=== PATIENT | male | born 1995 | race Caucasian/White ===

== ENCOUNTER 2016-09-18 13:57 | Emergency (ER) | payer OTHER ==
[~2016-09-18] VITALS: Ht 182.9 cm; Wt 81.6 kg
--- NOTE | 2016-09-18 15:37 | ED GENERAL ADULT ---
History of Present Illness General Chief Complaint: Shoulder Injury Stated Complaint: L SHOULDER PAIN Source: patient, family Exam Limitations: no limitations Vital Signs & Intake/Output Vital Signs & Intake/Output Vital Signs Date Time Temp Pulse Resp B/P Pulse O2 O2 Flow FiO2 Ox Delivery Rate 09/18 2108 99.5 92 16 121/55 99 Room Air 09/18 1930 99.2 85 20 160/75 99 Room Air 09/18 1900 95 09/18 1854 99.2 09/18 1723 103.1 09/18 1723 103.1 104 20 136/63 98 Room Air 09/18 1411 99.3 87 20 122/66 97 Room Air ED Intake and Output 09/19 0000 09/18 1200 Intake Total Output Total Balance Patient 180 lb Weight Allergies Coded Allergies: No Known Allergies (09/18/16) Reconcile Medications Cyclobenzaprine HCl 5 MG TABLET 1 TAB PO TIDPRN Muscle Spasm Triage Note: TRIAGE: PT TO ER WITH MOTHER C/C L SHOULDER PAIN, ONSET YESTERDAY MORNING. WOKE UP WITH IT. ?'S SLEPT ON IT WRONG. NO KNOWN INJURY. TOOK IBUPROFEN 2 DOSES OF IBUPROFEN (TOTAL 1400 MG) SINCE 07:30 WITH NO RELIEF NOTED. Triage Nurses Notes Reviewed? yes HPI: 21 yo previosuly healthy M presenting with left shoulder pain, chills. Patient woke up with left shoulder pain yesterday morning, progressive since that time, worse with movement or palpation. Denies trauma or straining injury. Chills starting last night, tactile fevers, diaphoresis. Worsening pain today prompting presentation to the ED. ROS (+) for nasal congestion, mild cough, intermittent dysuria. Patient sexually active with one partner, sometimes uses protection, denies penile discharge or lesions. Denies rash, neck pain/stiffness, GARNER, CP, SOB, AP, N/V/D/C, neurologic Sx. (LUIS ENRIQUE NICOLAS,DANIEL) Past History Travel History Traveled to [place] past 21 day No Medical History Any Pertinent Medical History? see below for history Neurological: NONE EENT: NONE Cardiovascular: NONE Respiratory: NONE Gastrointestinal: NONE Hepatic: NONE Renal: NONE Musculoskeletal: R WRIST FX Psychiatric: NONE Endocrine: NONE Blood Disorders: NONE Cancer(s): NONE FR[employer] FO[employer] MANAGER/Reproductive: NONE Tetanus Vaccine: Surgical History Surgical History: none Psychosocial History What is your primary language German Tobacco Use: Never used ETOH Use: occasional use Illicit Drug Use: denies illicit drug use Family History Hx Contributory? No (DANIEL DUDLEY MD) Review of Systems Review of Systems Constitutional: Reports: chills, diaphoresis, fever, malaise, weakness. EENTM: Reports: nasal congestion. Respiratory: Reports: cough. Cardiovascular: Reports: no symptoms. GI: Reports: no symptoms. Genitourinary: Reports: dysuria. Denies: frequency, hematuria, urgency. Musculoskeletal: Reports: joint pain, muscle pain, muscle stiffness. Skin: Reports: no symptoms. Neurological/Psychological: Reports: no symptoms. Hematologic/Endocrine: Reports: no symptoms. Immunologic/Allergic: Reports: no symptoms. All Other Systems: Reviewed and Negative (DANIEL DUDLEY MD) Physical Exam Physical Exam General Appearance: well developed/nourished, no apparent distress, alert, awake Head: atraumatic, normal appearance Eyes: Bilateral: normal appearance. Ears, Nose, Throat: normal pharynx, normal ENT inspection Neck: normal inspection, supple, full range of motion Respiratory: normal breath sounds, no respiratory distress, lungs clear Cardiovascular: regular rate/rhythm, normal peripheral pulses Peripheral Pulses: 2+ radial (R), 2+ radial (L), 2+ dorsalis pedis (R), 2+ dorsalis pedis (L) Gastrointestinal: normal bowel sounds, soft, non-tender, no organomegaly Extremities: See below Neurologic/Psych: no motor/sensory deficits Comments: Left Upper Extremity: TTP over lateral shoulder and distal trapezius muscle, Full ROM, pain with active ROM, minimal pain with passive ROM, no appreciable sholder joint effusion, no overlying skin changes, no TTP or reduced ROM of elbow, wrist, hand, 2+ radial and ulnar pulses Core Measures ACS in differential dx? No CVA/TIA Diagnosis: No Severe Sepsis Present: No Septic Shock Present: No (DANIEL DUDLEY MD) Progress Differential Diagnoses I considered the following diagnoses in my evaluation of the patient: [Viral URI , Influenza, UTI, STI, disseminated gonorrhea, septic arthritis.] Plan of Care: Orders Procedure Date/time Status Add-on Test (ER Only) 09/18 1904 Active WESTERGREN SED RATE 09/18 1719 Complete C-REACTIVE PROTEIN 09/18 171 Complete CREATINE PHOSPHOKINASE 09/18 1719 Complete RAPID VIRAL INFLUENZA A 09/18 153 Complete CHLAMYDIA-GC DNA PROBE 09/18 1538 Active URINALYSIS 09/18 153 Complete CBC WITHOUT DIFFERENTIAL 09/18 153 Complete BASIC METABOLIC PANEL 09/18 153 Complete Laboratory Tests 09/18/16 1719: Anion Gap 13, Estimated GFR > 60, BUN/Creatinine Ratio 14.4, Glucose 101 H, Calcium 9.4, Creatine Kinase 76, C-Reactive Prot, Quant 4.8 H, CBC w Diff MAN DIFF ORDERED, RBC 5.10, MCV 86.6, MCH 28.8, RDW 13.2, MPV 9.0, Gran % 93.0 H, Lymphocytes % 6.0 L, Monocytes % 1.0 L, Eosinophils % 0, Basophils % 0 L, Absolute Granulocytes 12.8 H, Segmented Neutrophils 81 H, Band Neutrophils 6 H, Absolute Lymphocytes 0.8 L, Lymphocytes 9 L, Monocytes 4, Absolute Monocytes 0.1 L, Absolute Eosinophils 0, Absolute Basophils 0, Platelet Estimate DECREASED, Normocytic RBCs VERIFIED, Normochromic RBCs VERIFIED, PUBS MCHC 33.3, ESR Westergren 5 09/18/16 1600: Urinalysis LIGHT H, Urine Color YEL, Urine Clarity CLEAR, Urine pH 6.0, Ur Specific [place] 1.025, Urine Protein TRACE H, Urine Ketones NEG, Urine Nitrite NEG, Urine Bilirubin NEG, Urine Urobilinogen 0.2, Ur Leukocyte Esterase NEG, Ur Microscopic SEDIMENT EXAMINED, Urine RBC FEW H, Urine WBC RARE, Ur Epithelial Cells RARE, Urine Hemoglobin NEG, Urine Glucose NEG Microbiology 09/18 1718 NASOPHARYN: Influenza Virus A & B Rapid Smear - COMP 09/18 1600 URINE ROUT: GC DNA Probe - RECD 09/18 1600 URINE ROUT: Chlamydia DNA Probe (ASHLEY) - RECD Physician MDM: 21 yo previosuly healthy M presenting with fevers, chills, left shoulder pain. Tacycardic in low 100s, febrile to 103, remainder of exam as above. DDx: Viral URI, Influenza, UTI, STI, disseminated gonorrhea, septic arthritis. Given tylenol with resolution of fever, improvement in HR, minimal improvement in shoulder pain. CBC with mild leukocytosis. BMP unermarkable. ESR normal, CRP minimally elevated, low concern for septic arthritis. Right shoulder XR without osseous abnormality. Rapid influenza pending. UA not suggestive of infection. Urine PCR for GCC sent, patient will follow up with PMD after discharge, concern for gonorrhea not high enough to treat empirically. Percocet then dilaudid 1 mg with resolution of shoulder pain. On re-examination patient resting comfortably, requesting discharge. D/Saul with return precutions, plan to f/u with family's orthopedist tomorrow. D/W Dr. Ulloa and Dr. Brady. (LUIS ENRIQUE NICOLAS,DANIEL) Initial ED EKG: none (LUIS ENRIQUE NICOLAS,DANIEL) Departure Departure Disposition: HOME OR SELF CARE Condition: Stable Clinical Impression Primary Impression: Right shoulder pain Qualifiers: Chronicity: acute Qualified Code: M25.511 - Pain in right shoulder Secondary Impressions: Fever Qualifiers: Fever type: unspecified Qualified Code: R50.9 - Fever, unspecified Nasal congestion Referrals: JERE NICOLAS,CHRIS Nguyễn (PCP/Family) Additional Instructions: Take ibuprofen for mild to moderate pain or fevers. Take percocet for severe pain. Follow up with your orthopedist tomorrow. Return to the ED for any new, worsening, or concerning symptoms. Departure Forms: Customer Survey General Discharge Information Prescriptions: Current Visit Scripts Cyclobenzaprine HCl 1 TAB PO TIDPRN #30 TAB (LUIS ENRIQUE NICOLAS,DANIEL) Resident Co-Sign Statement Statement: ED Attending supervision documentation- [x] I saw and evaluated the patient. I have also reviewed all the pertinent lab results and diagnostic results. I agree with the findings and the plan of care as documented in the Resident's documentation. [] I have reviewed the ED Record and agree with the Resident's documentation. [] Additions or exceptions (if any) to the Resident's note and plan are summarized below: [] (GARRICK NICOLAS,LEVY Buck) Critical Care Note Critical Care Note Critical Care Time: non-applicable (LUIS ENRIQUE NICOLAS,DANIEL)
--- NOTE | 2016-09-18 16:46 | RADIOLOGY REPORT ---
EXAMINATION: XR SHOULDER, LEFT CLINICAL INFORMATION: Shoulder pain. COMPARISON: None TECHNIQUE: AP external rotation, Grashey, scapular Y, and axillary views of the left shoulder. FINDINGS: No fracture or dislocation. The humeral head is well aligned with the glenoid. No widening of the acromioclavicular joint. IMPRESSION: No acute osseous abnormality demonstrated.
[2016-09-18 17:40] LABS: ABSOLUTE BASOPHIL COUNT 0 /CUMM (0.0-0.2); ABSOLUTE EOSINOPHIL COUNT 0 /CUMM (0.0-0.7); ABSOLUTE GRANULOCYTE CT 12.8 /CUMM (1.4-6.5); ABSOLUTE LYMPH COUNT 0.8 /CUMM (1.2-3.4); ABSOLUTE MONOCYTE COUNT 0.1 /CUMM (0.10-0.60); BASOPHIL % 0 % (0.0-2.0); EOSINOPHIL % 0 % (0-5); HEMATOCRIT 44.1 % (42-52); MEAN CORPUSCULAR HGB 28.8 PG (27.0-31.0); MEAN CORPUSCULAR HGB CONC 33.3 G/DL (33.0-37.0); MEAN CORPUSCULAR VOLUME 86.6 FL (80.0-94.0); PLATELET COUNT 135 /CUMM (130-400); RBC DISTRIBUTION WIDTH 13.2 % (11.5-14.5); WHITE BLOOD CELL COUNT 13.7 /CUMM (4.8-10.8)
[2016-09-18] MEDS ORDERED: CYCLOBENZAPRINE5 M2 PO (21:03)
[2016-09-18 21:08] VITALS: BP 121/55
== END 2016-09-18 21:10 ==
LOC: ERH 13:57
PROVIDERS: Student in an Organized Health Care Education/Training Program
DX: M25.511 Pain in right shoulder (principal); R50.9 Fever, unspecified; R09.81 Nasal congestion
CPT/HCPCS: 73030-LT; 81001; 87491; 87591; 87804; 87804-59; 96372